=== PATIENT | female | born 1950 | race Caucasian/White ===

== ENCOUNTER → 2020-07-22 13:15 | Outpatient (CLI) | payer MEDICARE, SELFPAY ==
--- NOTE | ~2020-07-22 | MM_ITS ---
EXAMINATION: MM screening [facility] BI w newton HISTORY: Screening mammogram TECHNIQUE: Craniocaudal and mediolateral oblique 3-D tomosynthesis images were obtained and synthetic 2-D images were generated. CAD analysis was submitted and interpreted. COMPARISON: 05/30/2019, 04/06/2018, 03/25/2017 BREAST PARENCHYMAL COMPOSITION: There are scattered areas of fibroglandular density. FINDINGS: There is no evidence of suspicious mass, calcification, or architectural distortion to sugg est malignancy in either breast. There has been no suspicious interval change. IMPRESSION: 1. No mammographic evidence of malignancy. 2. Recommend routine screening mammography in one year. BI-RADS Category 1: Negative Reviewed, dictated and finalized at location A. LOGIST
== END ==
PROVIDERS: Visit Provider Family Medicine Adolescent Medicine
DX: Z12.31 Encounter for screening mammogram for malignant neoplasm of breast (principal)
CPT/HCPCS: 77063; 77067

== ENCOUNTER 2021-08-02 12:20 | Emergency (ER) | payer MEDICARE, SELFPAY ==
[2021-08-02] VITALS (9 sets, daily range): BP systolic 105–161; BP diastolic 66–84; PULSE 81–100; RESP 16–20; TEMP 36.3; O2SAT 96–100
--- NOTE | ~2021-08-02 | CT_ITS ---
EXAMINATION: CT brain wo con DATE: 08/02/2021 13:28 INDICATION: Syncope TECHNIQUE: Computed tomography (CT) of the head was performed without intravenous contrast. The mA wa s adjusted according to patient size. Iterative reconstruction technique was employed. Exam dose: 68 1.00 mGy-cm total exam DLP. COMPARISON: None FINDINGS: No intracranial mass lesion or hemorrhage or cerebrovascular accident. No midline shift or mass effect effect. Normal ventricular size. There is nonspecific diminished attenuation cerebral whi te matter, likely due to chronic small vessel ischemic changes. Bilateral carotid siphon internal car otid artery calcifications are noted. No subdural or epidural hematoma. There is some soft tissue thickening of ethmoid air cells bilaterally. The paranasal sinuses and mast oid air cells are otherwise unremarkable. No fracture or bone destruction of the cranial vault. IMPRESSION: Cerebral atherosclerosis and chronic small vessel ischemic changes of the cerebral white matter No acute intracranial abnormality Reviewed, dictated and finalized at Location A. Reviewed, dictated and finalized at location A. L OPERATOR HELPER
--- NOTE | 2021-08-02 12:39 | ECG_ITS ---
Measurements Intervals [place] Rate: 85 P: 16 [place]: 166 QRS: 3 QRSD: 84 T: 41 QT: 353 QTc: 422 Interpretive Statements SINUS RHYTHM NORMAL ECG Electronically Signed On 08-02-2021 14:40:15 GEOGRAPHY PROFESSOR by Juni Limon D.O.
[2021-08-02 13:03] LABS: Basophils Percent Auto 0.3 % (0.2-1.2); Eosinophils Percent Auto 0.1 % (0-4.4); Hematocrit 40.4 % (37.0-47.0); Hemoglobin 13.3 g/dL (12.0-15.0); Immature Granulocyte Absolute 0.03 K/mm3 (0.00-0.031); Immature Granulocyte Percent A 0.4 % (0-0.5); Lymphocytes Absolute Auto 0.46 K/mm3 (0.9-3.2); Lymphocytes Percent Auto 6.2 % (18.3-44.2); Mean Corpuscular HGB Conc 32.9 g/dl (32-36); Mean Corpuscular Hemoglobin 29.2 pg (26-34); Mean Corpuscular Volume 88.6 fl (80-100); Mean Platelet Volume 10.9 fl (7.4-10.4); Monocytes Absolute Auto 0.3 K/mm3 (0.1-0.6); Monocytes Percent Auto 3.5 % (2.6-8.5); Neutrophils Absolute Auto 6.6 K/mm3 (1.3-6.7); Neutrophils Percent Auto 89.5 % (45.5-73.1); Platelet Count Result 263 k/mm3 (150-375); Red Blood Count 4.56 M/mm3 (4.2-5.4); Red Cell Distribution Width 12.4 % (11.5-14.5); White Blood Count 7.4 K/mm3 (4.5-10.0)
[2021-08-02] MEDS: LACTATED RINGERS 1,000 ML 999 ML IV CONT (13:05)
[2021-08-02 13:17] LABS: Alanine Aminotransferase 189 U/L (4-35); Albumin Level 4.6 g/dL (3.5-5.1); Alkaline Phosphatase 303 U/L (38-126); Anion Gap 5 mmol/L (8-16); Aspartate Amino Transferase 165 U/L (14-36); Bilirubin,Total 0.7 mg/dL (0.2-1.3); Blood Urea Nitrogen 19 mg/dL (7-17); Calcium 9.4 mg/dL (8.4-10.2); Carbon Dioxide 25 mmol/L (22-30); Chloride 103 mmol/L (98-107); Estimated CRCL calculation 76 ml/min; Estimated Glomerular Filt Rate > 60; Glucose 170 mg/dL (65-110); Potassium 4.1 mmol/L (3.4-5.0); Sodium 133 mmol/L (137-145)
[2021-08-02 13:22] LABS: D Dimer 0.43 ug/mL (<0.48)
[2021-08-02 13:35] LABS: Troponin I < 0.012 ng/mL (0.000-0.034)
--- NOTE | 2021-08-02 13:37 | ED.SYNCOPE ---
HPI - Syncope General Chief Complaint: Syncope Stated Complaint: syncopal episode/vomiting Time Seen by Provider: 08/02/21 12:56 Source: patient Mode of arrival: ambulatory Limitations: no limitations History of Present Illness HPI narrative: Patient is a 71-year-old female complaining of a syncopal episode at home that lasted for only a few seconds . Patient states that she was in the bathroom using a toilet this happened. Patient states that she is been having diarrhea accompanied by nausea and vomiting that started yesterday. Patient describes her diarrhea as loose watery, nonbloody. Patient describes her vomitus as nonbilious nonbloody. Patient states that she did hit her head on the floor but denies any headache or head pain. Patient denies any neck, chest, abdomen, back or any extremity pain/injury. Patient denies any chest pain, shortness of breath, abdominal pain, fever or chills. Related Data Allergies Allergy/AdvReac Type Severity Reaction Status Date / Time PENCILLIN Allergy Mild RASH A Uncoded 12/24/08 14:35 CHILD Review of Systems Review of Systems: All systems reviewed & are unremarkable except as noted in HPI and below Constitutional: Constitutional: Denies body ache(s), Denies chills, Denies excessive sweating, Denies fatigue, Denies fever(s), Denies headache(s), Denies lethargy, Denies malaise, Denies weakness and Denies weight loss Eyes: Eyes: Denies blurry vision, Denies change in vision and Denies loss of vision ENT: Denies dizziness, Denies ear discharge, Denies headache(s), Denies lip swelling, Denies epistaxis, Denies nasal congestion, Denies neck pain, Denies throat swelling and Denies tongue swelling Cardiovascular: Cardiovascular: Denies chest pain, Denies chest pain at rest, Denies chest pain with activity, Denies diaphoresis, Denies rapid heart rate, Denies edema, Denies irregular heart rhythm, Denies lightheadedness, Denies palpitations, Denies dyspnea and Denies dyspnea on exertion Respiratory: Respiratory: Denies chest congestion, Denies cough, Denies hemoptysis, Denies dyspnea and Denies dyspnea on exertion Gastrointestinal: Gastrointestinal: Denies abdominal pain, Denies melena, Denies hematochezia and Denies hematemesis Musculoskeletal: Musculoskeletal: Denies abnormal gait, Denies deformity, Denies joint swelling, Denies limited range of motion, Denies neck pain and Denies numbness Neurologic: Denies Abnormal speech present, Denies abnormal gait, Denies confusion, Denies dizziness, Denies headache(s), Denies focal weakness, Denies loss of vision, Denies numbness, Denies Other visual disturbances, Denies Sensory deficit (Neuro) and Denies weakness Psychiatric: Psychiatric: Denies confusion, Denies depression, Denies auditory hallucinations, Denies homicidal ideation and Denies suicidal ideation Endocrine: Endocrine: Denies cold intolerance, Denies excessive sweating, Denies fatigue, Denies heat intolerance and Denies palpitations Hematologic/Lymphatic: Hematologic/Lymphatic: Denies easy bleeding and Denies easy bruising Allergic/Immunologic: Allergic/Immunologic: Denies lip swelling, Denies throat swelling and Denies tongue swelling PMFSH Comments Past medical history: Hypertension Family history: Hypertension Social history: Non-smoker no EtOH or drug use Exam Const: General: cooperative, healthy appearing, comfortable, no acute distress, well developed, alert and awake; No confusion Orientation/consciousness: oriented to person, oriented to place, oriented to time, patient oriented x3 and No confusion Limitations: no limitations HENMT: Head: normal to inspection, normocephalic and atraumatic Ears: hearing grossly normal bilaterally, TM normal on the right and TM normal on the left General nose exam: Normal external nose present, Normal nares present and No nasal discharge present Face and sinus: normal facial exam Mouth: Yes Normal oral and palatal mucosa present, Yes lip normal,
[2021-08-03 17:04] LABS: SARS-CoV-2 RNA PCR Negative
== END 2021-08-02 15:16 | disposition home or self-care (01) ==
PROVIDERS: Emergency Medicine; Emergency Provider Emergency Medicine; PCP Family Medicine Adolescent Medicine
DX: R55 Syncope and collapse (principal); K52.9 Noninfective gastroenteritis and colitis, unspecified; E86.0 Dehydration; I10 Essential (primary) hypertension; Z20.822 Contact with and (suspected) exposure to COVID-19
CPT/HCPCS: 36415; 70450; 80053; 84484; 85025; 85380; 93005; 96360; 99284; C9803; J7120; U0003; U0005

== ENCOUNTER → 2021-09-15 13:48 | Outpatient (CLI) | payer MEDICARE, SELFPAY ==
--- NOTE | ~2021-09-15 | MM_ITS ---
EXAMINATION: MM screening [facility] BI w newton HISTORY: Screening TECHNIQUE: Craniocaudal and mediolateral oblique 3-D tomosynthesis images were obtained and synthetic 2-D images were generated. CAD analysis was submitted and interpreted. COMPARISON: Comparison to multiple prior studies sequentially, with oldest reviewed study dated Kevin rison to multiple prior studies sequentially, with oldest reviewed study dated 03/25/2017. . BREAST PARENCHYMAL COMPOSITION: There are scattered areas of fibroglandular density. FINDINGS: Bilateral breast asymmetries are stable. There is no evidence of suspicious mass, calcifica tion, or architectural distortion to suggest malignancy in either breast. There has been no suspiciou s interval change. IMPRESSION: 1. No mammographic evidence of malignancy. 2. Recommend routine screening mammography in one year. BI-RADS Category 2: Benign finding(s). Reviewed, dictated and finalized at location A. ING DEPARTMENT SUPERVISOR
== END ==
PROVIDERS: PCP Family Medicine Adolescent Medicine; Visit Provider Family Medicine Adolescent Medicine
DX: Z12.31 Encounter for screening mammogram for malignant neoplasm of breast (principal)
CPT/HCPCS: 77063; 77067

== ENCOUNTER → 2021-10-21 10:56 | Outpatient (CLI) | payer MEDICARE, SELFPAY ==
--- NOTE | ~2021-10-21 | DEXA_ITS ---
Bone Density Report Name: FATOUMATA TORRES Age: 71 Sex: Female Ethnicity: White Date of : 1950 Indication: postmenopausal; screening for osteoporosis; height loss; Referring Provider: BEHZAD CONDE Study: Bone densitometry was performed. Exam Date: October 21, 2021 Accession number: [id number] Bone Density: Region BMD T-score Z-score Classification AP Spine (L1-L4) 1.070 0.2 2.3 Normal Femoral Neck (Left) 0.806 -0.4 1.4 Normal Total Hip (Left) 1.072 1.1 2.5 Normal Femoral Neck (Right) 0.868 0.2 1.9 Normal Total Hip (Right) 1.019 0.6 2.1 Normal Total Hip Mean 1.046 0.9 2.3 Normal World Health Organization criteria for BMD impression classify patients as: Normal (T-score at or above -1.0), Osteopenia (T-score between -1.0 and -2.5), or Osteoporosis (T-score at or below -2.5). 10-year Fracture Risk: FRAX not reported because: All T-scores for Spine Total, Hip Total, Femoral Neck at or above -1.0 Previous Exams: Region Exam Age BMD T-score BMD Change BMD Change Date g/cm2 vs Baseline vs Previous AP Spine(L1-L4) 10/21/2021 71 1.070 0.2 -0.027* -0.034* 07/09/2017 67 1.104 0.5 0.007 0.007 02/23/2014 63 1.097 0.5 Total Hip(Left) 10/21/2021 71 1.072 1.1 -0.060* -0.003 07/09/2017 67 1.074 1.1 -0.057* -0.057* 02/23/2014 63 1.132 1.6 Total Hip(Right) 10/21/2021 71 1.019 0.6 -0.052* -0.029* 07/09/2017 67 1.047 0.9 -0.024 -0.024 02/23/2014 63 1.071 1.1 *Denotes significance at 95% confidence level, LSC for AP Spine = 0.022 g/cm2, LSC for Total Hip = 0.027 g/cm2 Clinical Information Provided by Patient: Has used the following medications: Vitamin D, Calcium Patient maximum height was 65.0 Menopause Age: 55 No regular weight bearing exercise Drinks caffeinated beverages Onset of menses at age 13 Number of children 2 Impression: The patient has normal bone mass. The BMD for the AP Spine(L1-L4) decreased, changing by -0.034 since the last DXA exam. The BMD for the Total Hip(Right) decreased, changing by -0.029 since the last DXA exam. Discussion: BONE DENSITY IS ABOVE THE MINIMUM DESIRABLE LEVEL AT ALL SKELETAL SITES TESTED. This patient?s bone mineral density is above the minimum desirable level (T-score -1.0 or better) at all sites measured. The patient should follow a healthful lifestyle (g
== END ==
PROVIDERS: PCP Family Medicine Adolescent Medicine; Visit Provider Family Medicine Adolescent Medicine
DX: Z78.0 Asymptomatic menopausal state (principal)
CPT/HCPCS: 77080

== ENCOUNTER → 2022-10-30 12:31 | Outpatient (CLI) | payer MEDICARE, SELFPAY ==
--- NOTE | ~2022-10-30 | MM_ITS ---
EXAMINATION: MM screening buddy BI w newton HISTORY: Screening TECHNIQUE: Craniocaudal and mediolateral oblique 3-D tomosynthesis images were obtained and synthetic 2-D images were generated. CAD analysis was submitted and interpreted. COMPARISON: Comparison to multiple prior studies sequentially, with oldest reviewed study dated 03/30. BREAST PARENCHYMAL COMPOSITION: FINDINGS: There is no evidence of suspicious mass, calcification, or architectural distortion to sugg est malignancy in either breast. There has been no suspicious interval change. IMPRESSION: 1. No mammographic evidence of malignancy. 2. Recommend routine screening mammography in one year. BI-RADS Category 1: Negative Reviewed, dictated and finalized at location A.
== END ==
PROVIDERS: PCP Family Medicine Adolescent Medicine; Visit Provider Family Medicine Adolescent Medicine
DX: Z12.31 Encounter for screening mammogram for malignant neoplasm of breast (principal)
CPT/HCPCS: 77063; 77067

== ENCOUNTER 2023-12-08 10:22 | Outpatient (CLI) | payer MEDICARE, SELFPAY ==
--- NOTE | ~2023-12-08 | MM_ITS ---
EXAMINATION: MM screening buddy BI w newton HISTORY: Screening TECHNIQUE: Craniocaudal and mediolateral oblique 3-D tomosynthesis images were obtained and synthetic 2-D images were generated. CAD analysis was submitted and interpreted. COMPARISON: Comparison to multiple prior studies sequentially, with oldest reviewed study dated 03/25. BREAST PARENCHYMAL COMPOSITION: Not dense: There are scattered areas of fibroglandular density. FINDINGS: Bilateral breast asymmetries are stable. There is no evidence of suspicious mass, calcifica tion, or architectural distortion to suggest malignancy in either breast. There has been no suspiciou s interval change. IMPRESSION: 1. No mammographic evidence of malignancy. 2. Recommend routine screening mammography in one year. BI-RADS Category 1: Negative Reviewed, dictated and finalized at location B.
== END 2023-12-08 10:23 ==
LOC: MICIMG 10:23
PROVIDERS: PCP Family Medicine Adolescent Medicine; Visit Provider Family Medicine Adolescent Medicine
DX: Z12.31 Encounter for screening mammogram for malignant neoplasm of breast (principal)
CPT/HCPCS: 77063; 77067

== ENCOUNTER 2024-05-08 12:27 | Outpatient (CLI) | payer MEDICARE, SELFPAY ==
--- NOTE | ~2024-05-08 | US_ITS ---
EXAMINATION: US transvaginal DATE: 05/08/2024 13:06 INDICATION: R93.89 - Abnormal findings on diagnostic imaging of other... TECHNIQUE: Multiple transabdominal and endovaginal sonographic images of the pelvis were obtained. COMPARISON: None. FINDINGS: Uterus: 6.1 x 3.6 by 4.5 cm. 2.7 cm heterogeneous area in the anterior uterine body, likely fibroid. Endometrial complex measures 4 mm. Right Ovary: Not visualized. No adnexal mass Left Ovary: Not visualized. No adnexal mass There is no free fluid in the pelvis. IMPRESSION: 2.7 cm intramural fibroid. Bilateral ovaries not visualized. Reviewed, dictated and finalized at location K.
--- NOTE | ~2024-05-08 | US_ITS ---
EXAMINATION: US thyroid DATE: 05/08/2024 13:06 INDICATION: Nontoxic single thyroid nodule. TECHNIQUE: Multiple ultrasound images of the thyroid were obtained. COMPARISON: None. FINDINGS: The right thyroid lobe measures 4.6 x 2.2 x 1.5 cm. The left thyroid lobe measures 4.2 x 2.0 x 2.4 c m. In the right thyroid lobe, there is a 10 mm solid, hyperechoic, wider than tall nodule with ill-d efined margin without echogenic foci (TI-RADS TR3). In the right thyroid lobe, there is a 5 mm solid, hypoechoic, wider than tall nodule with smooth margin and punctate echogenic foci (TR5). In the left thyroid lobe, there is a 19 mm solid, hyperechoic, wider than tall nodule with smooth margin without echogenic foci (TR3). IMPRESSION: 1. Multinodular goiter. Consider ultrasound-guided fine needle aspiration of the 19 mm left thyroid n odule. Reviewed, dictated and finalized at location A. IMPRESSION: 1. Multinodular goiter. Consider ultrasound-guided fine needle aspiration of th e 19 mm left thyroid nodule.
== END 2024-05-08 12:28 | disposition home or self-care (01) ==
PROVIDERS: PCP Student in an Organized Health Care Education/Training Program; Visit Provider Nurse Practitioner Family
DX: R93.89 Abnormal findings on diagnostic imaging of other specified body structures (principal); E04.1 Nontoxic single thyroid nodule; D21.9 Benign neoplasm of connective and other soft tissue, unspecified
CPT/HCPCS: 76536; 76830

== ENCOUNTER 2024-06-14 12:45 | Outpatient (CLI) | payer MEDICARE, SELFPAY ==
--- NOTE | ~2024-06-14 | US_ITS ---
EXAMINATION: US FNA w image guidance DATE: 06/14/2024 13:44 INDICATION: Nontoxic single thyroid nodule. TECHNIQUE: The procedure and its benefits and risks were discussed with the patient. Risks specifically discusse d included bleeding. The patient verbalized understanding of the risks and agreed to proceed. The nec k was prepped and draped in the usual sterile manner. 1% lidocaine was used for local anesthesia. 6 passes were made with a 25G needle into the lesion under ultrasound guidance. There were no immedia te complications. FINDINGS: Grayscale ultrasound images demonstrate needles advanced into a 2.2 cm nodule in left thyroid lobe fo r biopsy. IMPRESSION: 1. Ultrasound-guided fine needle aspiration of a left thyroid nodule. Reviewed, dictated and finalized at location A. SERVICE ADVISER
== END 2024-06-14 12:46 | disposition home or self-care (01) ==
PROVIDERS: PCP Family Medicine Adolescent Medicine; Visit Provider Nurse Practitioner Family
DX: E04.1 Nontoxic single thyroid nodule (principal)
CPT/HCPCS: 10005; 88172; 88173; 88305

== ENCOUNTER 2024-09-25 11:19 | Outpatient (CLI) | payer MEDICARE, SELFPAY ==
[2024-09-25 11:46] LABS: Hemoglobin 13.1 g/dL (12.0-15.0)
[2024-09-25 12:11] LABS: Anion Gap 10 mmol/L (4-12); Blood Urea Nitrogen 23 mg/dL (7-17); Calcium 10.1 mg/dL (8.4-10.2); Carbon Dioxide 30 mmol/L (22-30); Chloride 99 mmol/L (98-107); Estimated Glomerular Filt Rate 50; Glucose 146 mg/dL (65-110); Potassium 3.9 mmol/L (3.4-5.0); Sodium 139 mmol/L (137-145)
--- OUTSIDE RECORDS SUMMARY | 2024-09-25 14:21 | XMS_ITS | Clinical Summary ---
Author Organization [facility] Address [address] [place] [address] Phone Care Team Providers Care High Voltage Electrician Name Role Phone Unavailable Primary Care Provider Unavailabl e Allergies Active Allergy Reactions Criticality Noted Date Comments Penicillins Rash Low 04/24/2024 Medications metFORMIN (GLUCOPHAGE XR) 500 mg Extended Release 24 hour tablet Take 500 mg by mouth daily. Active atorvastatin (LIPITOR) 20 mg tablet Take 20 mg by mouth daily. Active Fish Oil-[place]-3 Fatty Acids 360-1,200 mg Capsule Take 1 Capsule by mouth. Active losartan 100 mg-hydrochlorot hiazide 12.5 mg tablet (HYZAAR) Take 1 Tablet by mouth daily. Active calcium-vitamin D3 (CALTRATE 600+D) 600 mg-5 mcg (200 unit) Tablet Take 1 Tablet by mouth daily. Active HYDROcodone- taminophen (NORCO) 5-325 mg tabletIndicatio ns:Acute midline thoracic back pain Take 1 Tablet by mouth every 6 hours as needed for Pain, Severe. Max Daily Amount: 4 Tablets 20 Tablet 04/26/2024 12:27 PM CDT 04/26/2024 Active polyethylene glycol 3350 (MIRALAX) 17 gram/dose Powder Take 1 Scoopful (17 Grams) by mouth daily. Dissolve in 8 oz liquid as directed. 238 Gram 04/26/2024 12:27 PM CDT 04/26/2024 Active tiZANidine (ZANAFLEX) 2 mg Tablet Take 1 Tablet (2 mg) by mouth every 8 hours as needed for Spasm. 20 Tablet 04/26/2024 12:27 PM CDT 04/26/2024 Active Active Problems Problem Noted Date Diagnosed Date Thoracic back pain 04/25/2024 Benign hypertension 04/25/2024 Diabetes mellitus 04/25/2024 Hyperlipidemia 04/25/2024 Chronic low back pain 04/25/2024 DONNA (acute kidney injury) 04/25/2024 Thickened endometrium 04/25/2024 Encounters Date Type Department Care Team Description 09/19/2024 External Device Data STL ABSTRACTION Provider, Abstract 09/05/2024 External Device Data STL ABSTRACTION Provider, Abstract 08/30/2024 External Device Data STL ABSTRACTION Provider, Abstract 08/30/2024 External Device Data STL ABSTRACTION Provider, Abstract 08/23/2024 External Device Data STL ABSTRACTION Provider, Abstract 08/15/2024 External Device Data STL ABSTRACTION Provider, Abstract 07/04/2024 External Device Data STL ABSTRACTION Provider, Abstract from Last 3 Months Social History Tobacco Use Types Packs/Day Years Used Date Smoking Tobacco: Never Smokeless Tobacco: Never Tobacco Cessation:Counseling Given: Not Answered Feeling Safe Answer Date Recorded Are you in a relationship wi th someone who hurts you emotionally and/or physically? No 04/25/2024 Food Insecurity Answer Date Recorded Social/Environmental Concerns No concerns Transportation Needs Answer Date Record ed Social/Environmental Concerns No concerns Housing Stability Answer Date Recorded Social/Environmental Concerns No concerns Utility Needs Answer Date Recorded Social/Environmental Concerns No concerns Comments Unknown Sex and Gender Information Value Date Recorded Sex Assigned at Not on file Legal Sex Female 4:30 PM CDT Gender Identity Not on file Sexual Orientation Not on file Last Filed Vital Signs Vital Sign Reading Time Taken Comments Blood Pressure 156/71 04/26/2024 5:53 AM CDT Pulse 65 04/26/2024 5:53 AM CDT Temperature 36.4 C (97.6 F) 04/26/2024 5:53 AM CDT Respiratory Rate 18 04/26/2024 5:53 AM CDT Oxygen Saturation 96% 04/26/2024 5:53 AM CDT Inhaled Oxygen Concentration - - Weight 80.3 kg (177 lb) 04/24/2024 4:40 PM CDT Height 162.6 cm (5' 4 ) 04/24/2024 4:40 PM CDT Body Mass Index 30.38 04/24/2024 4:40 PM CDT Plan of Treatment Health Maintenance Due Date Last Done Comments DIABETES ANNUAL FOOT EXAM 1970 DIABETES ANNUAL RETINAL EXAM 1970 DIABETES HBA1C Q 6 MONTHS 1970 DIABETES MICROALBUMIN ANNUAL SCREEN 1970 LDL CHOLESTEROL ANNUAL 1970 DTAP/TDAP/TD VACCINES (1 - Tdap) 1971 PNEUMOCOCCAL VACCINE 65+ YEARS (1 of 2 - PCV) 05/24/19 71 BREAST CANCER SCREENING 1992 COLORECTAL SCREENING 1997 Colorectal Cancer Screening 1997 FIT-DNA Q 3 years 1997 FIT/FOBT Q 1 year 1997 Flex Sig/CT Colonography Q 5 years 1997 ZOSTER VACCINE (1 of 2) 2002 OSTEOPOROSIS SCREENING 2017 INFLUENZA VACCINE (#1) 2024 RSV VACCINE (60+ or ) (1 - 1-dose 75+ series) 2027 Insurance RX [employer] RX Member Subscriber Plan / Payer (Ef fective 2024-Present) Name:Bela Bean Relation to Subscriber:Self Name:Bela Bean Subscriber ID:Not on file Payer ID:Not on file Group ID:[id number] Type:RX Medicare Part D Address: [address] Advance Directives For more information, please contact: [phone] * Full Code (Latest Code Status on File) Date Activated Date Inactivated Comments 04/25/2024 4:20 AM 04/26/2024 2:37 PM
--- OUTSIDE RECORDS SUMMARY | 2024-09-25 14:21 | XMS_ITS | Continuity of Care Document ---
Author Organization [facility] Address [address] [place] [address] [place] [address] Phone Care Team Providers Care Periodicals Library Assistant Name Role Phone Mittal OD, Matt Unavailable Unavailable Procedures Procedure Date Office/outpatient Visit, Est Office/outpatient Visit, Est Office/outpatient Visit, Est Office/outpatient Visit, New Advance Directives Directive Yes / No Effective Date File Name No Information Encounters Encounter Description Practice Location Reason(s) For Visit Diagnoses Date Provider Providers Copied on Encounter Office/outpat ient Visit, [facility], [address] [place] [address] [address], [place], [place], [id number], [place] tel:[phone] [facility] No Information Mar-0 9-200 7 Mittal OD Matt. [facility] , [address], [place], [place], [facility], . tel:[phone] Office/outpat ient Visit, [facility], [address] [place] [address] [address], [place], [place], [id number], [place] tel:[phone] [facility] No Information Mar-0 2-200 7 Mittal OD Matt. [address] [facility] , [address], [place], [address], [place]. tel:[phone] Office/outpat ient Visit, [facility], [address] [place] [address] [address], [place], [place], [id number], [place] tel:[phone] [facility] No Information [address] Doisy Edward. [address] [facility] , [address], [place], [address], [place]. tel:[phone] Office/outpat ient Visit, [facility], [address], [place], [place], [id number], [place] tel:[phone] [facility] No Information 200 7 Mittal OD Matt. [address] [facility] , [address], [place], [address], [place]. tel:[phone] Family History Family Member Type Diagnosis Age At Onset No Information Payers Payer name Insurance type Covered libertarian ID Authoriza tion(s) No Information Social History Type Description Quantity Date Captured Comments Sex Female Smoking Status No Information Chief Complaint And Reason For Visit No Information Reason For Referral Reason For Referral No Information History Of Present Illness Encounter Date Complaint History Of Prese nt Illness No Information Functional Status Date Functional Assessmen t No Information Instructions Date Instruction Additional Infor mation No Information Assessments Type Assessment Date No Information Patient Care Teams Name Effective Dates (start - stop) Status Members No Information
== END 2024-09-25 11:20 | disposition home or self-care (01) ==
LOC: ANHSURGERY 11:24
PROVIDERS: Anesthesiology; PCP Nurse Practitioner Family; Visit Provider Student in an Organized Health Care Education/Training Program
DX: Z01.812 Encounter for preprocedural laboratory examination (principal); N85.00 Endometrial hyperplasia, unspecified; E11.9 Type 2 diabetes mellitus without complications
CPT/HCPCS: 36415; 80048; 85014; 85018

== ENCOUNTER 2024-10-02 01:43 | Day surgery (SDC) | payer MEDICARE, SELFPAY ==
--- NOTE | 2024-09-19 13:18 | PC.NURSE ---
Report to the Outpatient Waiting Room, entrance under the green pavilion located off [facility], at time _10:00am on date 10/02/24 . Planned Procedure Time: __12:00pm .? Time changes happen often and if your time is changed the preop area will call you the afternoon before. - You and your visitor will be asked to self-screen and do not enter if you have any COVID symptoms. Please call surgeon if you need to reschedule. - A mask is optional within the hospital at this time. Patients may have clear liquids (water, carbonated beverages, clear teas, apple juice) until 3 hours prior to surgery with a maximum of 20 ounces. - No food from midnight until time of surgery and no smoking, or chewing tobacco (or any form of nicotine). No chewing gum, candy or mints. (0900am) Take only the following medications with a SIP of water on the morning of surgery: ____None DO NOT STOP ANY OF YOUR OTHER PRESCRIPTION MEDICATIONS PRIOR TO SURGERY EXCEPT THE FOLLOWING Hold all vitamins and supplements for 3 days per anesthesiologist. Date to take last dose__09/28/24 Please no make-up, nail maldivian, hairspray, perfume, deodorant, or body powder the day of surgery.? No jewelry (including any body piercings) or valuables the day of surgery, leave them at home. ? Please take a shower or bath the night before, or the morning of, surgery with an antibacterial soap.? Wear comfortable, loose fitting clothing.? - Jewelry must be removed prior to entering the operating room.? Rings and piercings that are not removed may be cut off. - The hospital will not accept responsibility for valuables.? - Please leave all valuables, including medications, at home the day of surgery. If you are going home after surgery, a licensed street flusher driver must drive you home.? - NO public transportation without another adult if you receive anesthesia. - We recommend that an adult stay with you for 24 hours following discharge. - We also recommend that you do not drive, make important decision, drink alcoholic beverages, or take any drugs that were not prescribed by your health care provider for at least 24 hours after your discharge time. Follow any additional instructions given to you from your surgeon. Telephone instructions given to __Patient and asked if any additional questions and then verbalized understanding. Patient advised to call surgeon office or pre surgery nurse liaison [phone] if any additional questions.
--- OUTSIDE RECORDS SUMMARY | 2024-10-02 01:46 | XMS_ITS | Continuity of Care Document ---
Author Organization [facility] Address [address] [place] [address] [place] [address] Phone Care Team Providers Care Supervisor Contact And Service Clerks Name Role Phone Mittal OD, Matt Unavailable Unavailable Procedures Procedure Date Office/outpatient Visit, Est Office/outpatient Visit, Est Office/outpatient Visit, Est Office/outpatient Visit, New Advance Directives Directive Yes / No Effective Date File Name No Information Encounters Encounter Description Practice Location Reason(s) For Visit Diagnoses Date Provider Providers Copied on Encounter Office/outpat ient Visit, [facility] [place] [address] [place] [address] [address], [place], [place], [id number], tel:[phone] [facility] No Information Mar-0 9-200 7 Mittal OD Matt. [facility] , [address], [place], [place], [facility], . tel:[phone] Office/outpat ient Visit, [facility] [address] [place] [address] [address], [place], [place], [id number], [place] tel:[phone] [facility] No Information Mar-0 2-200 7 Mittal OD Matt. [address] [facility] , [address], [place], [address], [place]. tel:[phone] Office/outpat ient Visit, [facility], [address] [place] [address] [address], [place], [place], [id number], [place] tel:[phone] [facility] No Information 200 7 Doisy Edward. [address] [facility] , [address], [place], [address], [place]. tel:[phone] Office/outpat ient Visit, [facility], [address], [place], [place], [id number], [place] tel:[phone] [facility] No Information 200 7 Mittal OD Matt. [address] [facility] , [address], [place], [address], [place]. tel:[phone] Family History Family Member Type Diagnosis Age At Onset No Information Payers Payer name Insurance type Covered republican ID Authoriza tion(s) No Information Social History [...]
--- OUTSIDE RECORDS SUMMARY | 2024-10-02 01:46 | XMS_ITS | Clinical Summary ---
Author Organization [facility] Address [address] [place] [address] Phone Care Team Providers Care Exercise Science Instructor Name Role Phone Unavailable Primary Care Provider Unavailabl e Allergies Active Allergy Reactions Criticality Noted Date Comments Penicillins Rash Low 04/24/2024 Medications metFORMIN (GLUCOPHAGE XR) 500 mg Extended Release 24 hour tablet Take 500 mg by mouth daily. Active atorvastatin (LIPITOR) 20 mg tablet Take 20 mg by mouth daily. Active Fish Oil-[place]-3 Fatty Acids 360-1,200 mg Capsule Take 1 [...] 2024-Present) Name:Bela Bean Relation to Subscriber:Self Name:Bela Baen Subscriber ID:Not on file Payer ID:Not on file Group ID:[id number] Type:RX Medicare Part D Address: [address] Advance Directives For more information, please contact: [phone] * Full Code (Latest Code Status on File) Date Activated Date Inactivated Comments 04/25/2024 4:20 AM 04/26/2024 2:37 PM
--- NOTE | 2024-10-02 10:40 | PM.IMHP ---
H&P: HPI History of Present Illness Date/Time: 10/02/24 10:40 Chief Complaint: thickened endometrial lining on US Narrative: 74 yo female who presents for hysteroscopy D&C for management of thickened endometrial lining on pelvic US. Patient was incidentally found to have a uterine fibroid several months ago. Endometrial lining at that time was 4 mm. Patient had never had any vaginal bleeding. Recommended follow-up ultrasound. Patient's most recent pelvic ultrasound showed that the uterine fibroid is largely unchanged. Endometrial lining was measured at 12 mm. Patient states she has not had any bleeding or change in symptoms. Review of Systems Cardiovascular: Cardiovascular: Denies chest pain, Denies leg edema, Denies palpitations, Denies dyspnea and Denies dyspnea on exertion Respiratory: Respiratory: Denies cough, Denies dyspnea and Denies dyspnea on exertion Gastrointestinal: Gastrointestinal: Denies abdominal pain, Denies constipation, Denies diarrhea, Denies nausea and Denies vomiting Genitourinary: Genitourinary: Denies hematuria, Denies urinary frequency, Denies dysuria, Denies pelvic pain, Denies urinary incontinence and Denies vaginal discharge Neurologic: Reports system reviewed and no additional complaints, except as documented Psychiatric: Psychiatric: Reports no additional psychiatric complaints Endocrine: Endocrine: Denies palpitations PMFSH Past Medical History Medical History (Updated 08/21/24 @ 10:22 by Shae Santa CMA) Encounter for Pap cervical smear following prior abnormal smear Screening mammogram for breast cancer Impaired fasting glucose Pure hypercholesterolemia, unspecified Hypertension Surgical History Surgical History H/O dilation and curettage Social History Social History Smoking status: Never smoker Alcohol intake: never Substance use: never Do You Feel Safe in your Home?: Yes Lack of Transportation: No Lack of Food: Never True Current Housing: I Have Housing Concerned About Future Housing: No Difficulty Paying Gas/Electric Bills: No Difficulty Paying for Meds: No Currently Unemployed: No Education: High School Diploma/GED Living arrangements: with family Additional living arrangements comments: Spiritual care concerns: No Meds Home Medications and Allergies Home Medications ?Medication ?Instructions ?Recorded ?Confirmed ?Type calcium carbonate (Calcium 600) 600 mg PO DAILY 12/22/22 09/19/24 History multivitamin 1 tablet PO DAILY 05/10/24 09/19/24 History omega 2-dvw-tbl-fish oil 1,200 mg 1 cap PO DAILY 05/10/24 09/19/24 History (144 mg-216 mg) capsule (Fish Oil) metformin 500 mg tablet,extended 500 mg PO DAILY #90 tabs 05/30/24 09/19/24 Rx release 24 hr losartan 100 1 tablet PO DAILY #90 tabs 06/26/24 09/19/24 Rx mg-hydrochlorothiazide 12.5 mg tablet atorvastatin 20 mg tablet 20 mg PO DAILY #90 tabs 07/07/24 09/19/24 Rx Allergies Allergy/AdvReac Type Severity Reaction Status Date / Time Penicillins Allergy Mild Rash as a Verified 10/02/24 07:14 child Exam Const: General: no acute distress Eyes: EOM: EOMs intact bilaterally Neck: Neck: supple Thyroid: thyroid normal Chest: Breast/axilla inspection: normal inspection of the breasts Breast/axilla palpation: normal palpation of the breasts, normal palpation of the axillae and no axillary lymphadenopathy Resp: Effort & Inspection: normal respiratory effort Auscultation: clear to auscultation bilaterally Cardio: Rate: regular rate Rhythm: regular rhythm GI: Inspection: non-distended GI Palp: Yes Soft to palpation, No Tenderness to palpation present (GI) and No Guarding due to palpation present (GI) Auscultation: normal bowel sounds : General: No bladder normal to palpation External Female Exam: normal external appearance Speculum Exam - Vagina: normal vaginal discharge and No vaginal bleeding Speculum Exam - Cervix: nontender Bimanual exam- vagina & uterus: No bladder normal to palpation and No Cervical tenderness present OB/external & speculum: No vaginal bleeding Skin: General skin exam: normal color and no rashes or lesions noted Neuro: Cognition (Neuro): normal cognition Speech: normal speech Extrem: General: normal to inspection and no edema Psych: Mental Status: mental status grossly normal Affect: normal affect Assessment and Plan Assessment and plan (1) Endometrial thickening on ultrasound: Code(s): R93.89 - Abnormal findings on diagnostic imaging of other specified body structures Status: Acute Assessment and Plan: 74 yo female who presents for hysteroscopy D&C pt was incidentally found to have a uterine fibroid several months ago endometrial lining at that time was 4 mm pt recently had follow up US and lining is now 12 mm she denies any postmenopausal bleeding recommended tissue sampling will proceed with hysteroscopy D&C
[2024-10-02 10:56] LABS: Glucose Point of Care 121 mg/dl (65-105)
[2024-10-02 11:09] VITALS: BMI 30.4
[2024-10-02] MEDS: ACETAMINOPHEN 500 MG TABLET 1000 MG PO (11:13)
--- NOTE | 2024-10-02 11:28 | WPDANESEPPF ---
Anes - Initial Pre Proc Eval Procedure: Operation Date: 10/02/24 12:00 Proposed Procedures p Hysteroscopy Dilation and Curettage - Billy Oconnell MD Date/Time: 10/02/24 11:28 Surgeon: Billy Oconnell MD Pre Op Diagnosis: Endometrial Hyperplasia Patient Data Age: 74 Gender: F Height: 1.61 m Weight: 79.06 kg Allergies Allergy/AdvReac Type Severity Reaction Status Date / Time Penicillins Allergy Mild Rash as a Verified 10/02/24 11:09 child Home Medications ?Medication ?Instructions ?Recorded ?Confirmed ?Type calcium carbonate (Calcium 600) 600 mg PO DAILY 12/22/22 09/19/24 History multivitamin 1 tablet PO DAILY 05/10/24 09/19/24 History omega 1-sel-mqa-fish oil 1,200 mg 1 cap PO DAILY 05/10/24 09/19/24 History (144 mg-216 mg) capsule (Fish Oil) metformin 500 mg tablet,extended 500 mg PO DAILY #90 tabs 05/30/24 09/19/24 Rx release 24 hr losartan 100 1 tablet PO DAILY #90 tabs 06/26/24 09/19/24 Rx mg-hydrochlorothiazide 12.5 mg tablet atorvastatin 20 mg tablet 20 mg PO DAILY #90 tabs 07/07/24 09/19/24 Rx Laboratory Tests 10/02/24 10:49 POC Capillary Glucose 121 H mg/dl (65-105) Patient hx anesthesia problems: none Family hx anesthesia problems: none Results Review: All pre-operative results and documents have been reviewed as part of the pre-operative evaluation. [facility] Past Medical History Medical History Encounter for Pap cervical smear following prior abnormal smear Screening mammogram for breast cancer Impaired fasting glucose Pure hypercholesterolemia, unspecified Hypertension Surgical History Surgical History H/O dilation and curettage Social History Social History Smoking status: Never smoker Alcohol intake: never Substance use: never Do You Feel Safe in your Home?: Yes Lack of Transportation: No Lack of Food: Never True Current Housing: I Have Housing Concerned About Future Housing: No Difficulty Paying Gas/Electric Bills: No Difficulty Paying for Meds: No Currently Unemployed: No Education: High School Diploma/GED Living arrangements: with family Additional living arrangements comments: Spiritual care concerns: No Anes - Eval Final PreProcedure Day of Procedure 10/02/24 11:28 Patient weight: obese Heart: regular rate and rhythm Lungs: clear to auscultation Airway: Mallampati scale class III Neurological: alert and oriented Last oral intake: >/= 8 hours ASA classification: III Emergent: no Anesthetic plan: proceed Anesthesia type and monitoring: general GIVS and standard monitoring Results Review: All pre-operative results and documents have been reviewed as part of the pre-operative evaluation. Informed Consent: The patient's anesthetic plan and its attendant risks and benefits were discussed with the patient/family/POA. Questions were solicited and answers provided to the satisfaction of the patient/family/POA.
[2024-10-02] MEDS: LACTATED RINGERS 1,000 ML 30 ML IV CONT (11:33)
--- NOTE | 2024-10-02 11:47 | WPDHPUPDATE1 ---
History and Physical Update Update Date/Time: 10/02/24 11:47 History and Physical has been reviewed, including an updated exam of the patient. There are NO changes in the patient's condition. Risks, benefits, and alternatives have been discussed and questions answered. Patient agrees to proceed with procedure.
[2024-10-02 12:13] VITALS: BP 119/91; PULSE 68; RESP 14; O2SAT 93
--- NOTE | 2024-10-02 12:17 | W.PM.PROC2 ---
Procedure Note - Detailed Date of Procedure 10/02/24 Pre-op Diagnosis thickened endometrium on US Post-op Diagnosis Same Procedure Performed hysteroscopy dilation & curettage polypectomy Surgeon Billy Oconnell MD Anesthesia General Indications thickened endometrium on US Findings cervical polyp and intrauterine polyp originating from the anterior uterine wall. Normal tubal ostia bilaterally Description of Procedure Bela Bean presents for the above procedure. She was counseled as to the indications, risks, benefits, and alternatives to surgery, with the risks including bleeding, infection, damage to surrounding organs, VTE, and complications of anesthesia. Her verbal and written consent was obtained. PROCEDURE: The patient was taken to the OR and general anesthesia induced. She was prepped and draped in Rasheed stirrups with support of the back and bilateral lower extremities. I/O catheterization performed of the bladder. The above findings were noted. A single tooth tenaculum was placed on the anterior lip of the cervix. The cervix was dilated with sequential Tracey dilators. Hysteroscopy, using a normal saline medium, was performed and showed the above findings. Sharp uterine curettage was then performed using the operative hysteroscopic resection blade. polypectomy and endometrial sampling was performed under direct visualization. The tenaculum was removed and hemostasis was observed. The patient tolerated the procedure well. Sponge, lap, and needle counts were correct. The patient had SCD's on throughout the case for VTE prophylaxis. The patient was taken to the recovery room in stable condition. Estimated Blood Loss 5 Urine Output 15 Drains No Packing No Pathology Yes (endometrial curettings ) Complications No immediate complications Condition Stable Disposition PACU [facility] Billing Surgery - Charge Forward: Surgery Billing
[2024-10-02 12:43] VITALS: BP 154/57; PULSE 62; RESP 16
[2024-10-02 13:10] VITALS: BP 145/71; PULSE 67
[2024-10-02 13:40] VITALS: BP 136/56; PULSE 62
== END 2024-10-02 13:55 | disposition home or self-care (01) ==
PROVIDERS: PCP Nurse Practitioner Family; Visit Provider Student in an Organized Health Care Education/Training Program
PROC: 0U5B8ZZ Destruction of Endometrium, Via Natural or Artificial Opening Endoscopic (ICD-10-PCS; CPT 58563; principal; 2024-10-02 12:00)
DX: R93.89 Abnormal findings on diagnostic imaging of other specified body structures (principal); N84.0 Polyp of corpus uteri; N84.1 Polyp of cervix uteri; I10 Essential (primary) hypertension; E78.00 Pure hypercholesterolemia, unspecified; E66.9 Obesity, unspecified; Z68.30 Body mass index [BMI] 30.0-30.9, adult; Z79.84 Long term (current) use of oral hypoglycemic drugs; Z98.890 Other specified postprocedural states
CPT/HCPCS: 58558; 82948; 88305; A9270; J2704; J3010; J7120

== ENCOUNTER 2024-12-11 13:48 | Outpatient (CLI) | payer MEDICARE, SELFPAY ==
--- NOTE | ~2024-12-11 | MM_ITS ---
EXAMINATION: MM screening buddy BI w newton HISTORY: Screening TECHNIQUE: Craniocaudal and mediolateral oblique 3-D tomosynthesis images were obtained and synthetic 2-D images were generated. CAD analysis was submitted and interpreted. COMPARISON: Comparison to multiple prior studies sequentially, with oldest reviewed study dated 04/06. BREAST PARENCHYMAL COMPOSITION: Not dense: There are scattered areas of fibroglandular density. FINDINGS: Bilateral breast asymmetries are stable. There is no evidence of suspicious mass, calcifica tion, or architectural distortion to suggest malignancy in either breast. There has been no suspiciou s interval change. IMPRESSION: 1. No mammographic evidence of malignancy. 2. Recommend routine screening mammography in one year. BI-RADS Category 2: Benign finding(s). Reviewed, dictated and finalized at location A.
== END 2024-12-11 13:49 | disposition home or self-care (01) ==
PROVIDERS: PCP Family Medicine Adolescent Medicine; Visit Provider Student in an Organized Health Care Education/Training Program
DX: Z12.31 Encounter for screening mammogram for malignant neoplasm of breast (principal)
CPT/HCPCS: 77063; 77067

== ENCOUNTER 2024-12-11 13:53 | Outpatient (CLI) | payer MEDICARE, SELFPAY ==
--- NOTE | ~2024-12-11 | US_ITS ---
Thyroid ultrasound. Clinical History: Thyroid nodule COMPARISON: 05/08/2024 Findings: Real-time sonography of the thyroid gland was performed. The right lobe measures 4.3 x 1.3 x 1.4 cm. The left lobe measures 3.8 x 2.0 x 2.3 cm. The isthmus is 8 mm in AP diameter. There is a probable hyperechoic solid nodule at the right midpole measuring 8 mm in diameter. There i s a probable 6 mm hypoechoic nodule at the lower right pole region, which may be just posterior to th e thyroid itself. Suggestion of 1.9 x 1.6 x 1.9 cm minimally hyperechoic solid nodule at the left lower pole. Impression: Thyroid nodules, as detailed above, which are essentially stable from prior exam.. Reviewed, dictated and finalized at location M. Impression: Thyroid nodules, as detailed above, which are essentially stable from prior exa m..
== END 2024-12-11 13:54 | disposition home or self-care (01) ==
LOC: MICIMG 13:54
PROVIDERS: PCP Family Medicine Adolescent Medicine; Visit Provider Nurse Practitioner Family
DX: E04.2 Nontoxic multinodular goiter (principal)
CPT/HCPCS: 76536

== ENCOUNTER 2025-05-21 08:58 | Outpatient (CLI) | payer MEDICARE, SELFPAY ==
--- NOTE | ~2025-05-21 | NM_ITS ---
EXAMINATION: NM handy stress w perfusion DATE: 05/21/2025 11:28 INDICATION: Chest pain, unspecified. TECHNIQUE: Rest images were obtained following intravenous administration of 11.5 mCi Tc99m tetrofosmin (Myoview). The patient was infused intravenously with Lexiscan (regadenoson). Then, 35.7 mCi Tc99m tetrofosmin (Myoview) was administered intravenously, and stress images were obtained. Data was neva nstructed into short axis and horizontal and vertical long axis SPECT images. Gated SPECT images were also obtained. COMPARISON: None. FINDINGS: There is no definite reversible or fixed perfusion abnormality to suggest ischemia or infarction. There is no segmental wall motion abnormality. Left ventricular ejection fraction measures >70%. IMPRESSION: 1. No definite ischemia or infarct. 2. Normal left ventricular ejection fraction measuring >70%. Reviewed, dictated and finalized at location E.
--- NOTE | 2025-05-21 09:03 | EST_ITS ---
Patient Info Name: Bela Bean Age: 74 years : 1950 Gender: Female Ht: 63 in Wt: 170 lbs BSA: 1.88 m2 HR: 68 bpm BP: 191 / 81 mmHg Exam Date: 05/21/2025 9:03 AM Patient Status: O Admit Date: 05/21/2025 Exam Type: CA stress handy w NM A regadenoson stress test was performed. Staff Referring Physician: Laura Denney Attending Provider: Laura Denney Exercise Technologist: Sue Sales Exercise Physician: Juni Limon DO Summary 1. 1. Negative lexiscan stress test for ischemic ST changes by ECG criteria. 2. 2. Baseline hypertension. 3. 3. Nuclear scan to follow and will be reported separately. Please correlate with it. 4. 4. Patient informed of the above results. Protocol: Lexiscan Stress ECG Details Stage: REST Duration (min): 4 min : 22 sec HR (bpm): 67 SBP (mmHg): 191 DBP (mmHg): 81 Stage: REST Duration (min): 11 min : 27 sec HR (bpm): 67 SBP (mmHg): 191 DBP (mmHg): 81 Stage: STAGE 1 Duration (min): 1 min : 0 sec HR (bpm): 87 SBP (mmHg): 191 DBP (mmHg): 81 Stage: RECOVERY Duration (min): 1 min : 0 sec HR (bpm): 93 SBP (mmHg): 178 DBP (mmHg): 58 Stage: RECOVERY Duration (min): 2 min : 0 sec HR (bpm): 90 SBP (mmHg): 178 DBP (mmHg): 58 Stage: RECOVERY Duration (min): 3 min : 0 sec HR (bpm): 90 SBP (mmHg): 178 DBP (mmHg): 58 Stage: RECOVERY Duration (min): 3 min : 54 sec HR (bpm): 88 SBP (mmHg): 155 DBP (mmHg): 59 Rest HR: 67 bpm Peak HR: 95 bpm Rest Sys BP: 191 mmHg Peak Sys BP: 178 mmHg Max Pred HR: 148 bpm % Max Pred HR: 64 % Target HR: 126 bpm Max RPP: 16,910 bpm*mmHg Termination Reason: Completed protocol Cardiac Symptoms: Shortness of breath Total Time: 1 min : 0 sec Rest Vega BP: 81 mmHg Peak Vega BP: 58 mmHg Total Dose: 0.4 mg Resting ECG Sinus rhythm. Stress ECG No ST changes. Arrhythmias None. Report Signatures
--- OUTSIDE RECORDS SUMMARY | 2025-05-21 09:26 | XMS_ITS | Clinical Summary ---
Author Organization [facility] Address [address] [place] [address] Phone Care Team Providers Care Explosive Operator Supervisor Name Role Phone Unavailable Primary Care Provider Unavailabl e Allergies Active Allergy Reactions Criticality Noted Date Comments Penicillins Rash Low 04/24/2024 Medications metFORMIN (GLUCOPHAGE XR) 500 mg Extended Release 24 hour tablet Take 500 mg by mouth daily. Active atorvastatin (LIPITOR) 20 mg tablet Take 20 mg by mouth daily. Active Fish Oil-[place]-3 Fatty Acids 360-1,200 mg Capsule Take 1 [...] Encounters Date Type Department Care Team Description 04/25/2025 External Device Data [facility] ABSTRACTION Provider, Abstract 04/24/2025 External Device Data [facility] ABSTRACTION Provider, Abstract 04/10/2025 External Device Data [facility] ABSTRACTION Provider, Abstract 04/10/2025 External Device Data [facility] ABSTRACTION Provider, Abstract 03/27/2025 External Device Data [facility] ABSTRACTION Provider, Abstract 03/14/2025 External Device Data [facility] ABSTRACTION Provider, Abstract 03/06/2025 External Device Data [facility] ABSTRACTION Provider, Abstract from Last 3 Months Social History Tobacco Use Types Packs/Day Years Used Date Smoking Tobacco: Never Smokeless Tobacco: Never Tobacco Cessation:Counseling Given: Not Answered Feeling Safe Answer Date Recorded Are you in a relationship wi th someone who hurts you emotionally and/or physically? No 04/25/2024 Food Insecurity Answer Date Recorded Patient needs follow up regardin 12/17/2024 Transportation Needs Answer Date Record ed Patient needs follow up regardin 12/17/2024 Housing Stability Answer Date Recorded Social/Environmental Concerns No concerns Utility Needs Answer Date Recorded Patient needs follow up regardin 12/17/2024 Comments Unknown Sex and Gender Information Value [...] 4:40 PM CDT Height 162.6 cm (5' 4) 04/24/2024 4:40 PM CDT Body Mass Index 30.38 04/24/2024 4:40 PM CDT Plan of Treatment Health Maintenance Due Date Last Done Comments DIABETES ANNUAL FOOT EXAM 1970 DIABETES ANNUAL RETINAL EXAM 1970 DIABETES HBA1C Q 6 MONTHS 1970 DIABETES MICROALBUMIN ANNUAL SCREEN 1970 LDL CHOLESTEROL ANNUAL 1970 DTAP/TDAP/TD VACCINES (1 - Tdap) 1971 PNEUMOCOCCAL VACCINE 50+ YEARS (1 of 2 - PCV) 05/24/19 71 BREAST CANCER SCREENING 1992 COLORECTAL SCREENING 1997 Colorectal Cancer Screening 1997 FIT-DNA Q 3 years 1997 FIT/FOBT Q 1 year 1997 Flex Sig/CT Colonography Q 5 years 1997 ZOSTER VACCINE (1 of 2) 2002 OSTEOPOROSIS SCREENING 2017 INFLUENZA VACCINE (#1) 2025 RSV VACCINE (60+ or ) (1 - 1-dose 75+ series) 2027 Insurance RX [employer] RX Member Subscriber Plan / Payer (Ef fective 2024-Present) Name:Bela Bean Relation to Subscriber:Self Name:Bela Bean Subscriber ID:Not on file Payer ID:Not on file Group ID:[id number] Type:RX Medicare Part D Address: [address] Advance Directives For more information, please contact: [phone] * Full Code (Latest Code Status on File) Date Activated Date Inactivated Comments 04/25/2024 4:20 AM 04/26/2024 2:37 PM
== END 2025-05-21 08:59 | disposition home or self-care (01) ==
PROVIDERS: PCP Nurse Practitioner Family; Visit Provider Nurse Practitioner Family
DX: R07.9 Chest pain, unspecified (principal); E78.5 Hyperlipidemia, unspecified; E11.9 Type 2 diabetes mellitus without complications
CPT/HCPCS: 78452; 93017; A9502; J2785